=== PATIENT | male | born 1950 | race Native Hawaiian/Other Pacific Islander ===

== ENCOUNTER 2017-08-21 08:05 | Day surgery (SDC) | payer MEDICARE ==
[~2017-08-21 08:05] MED LIST: ANCEF/STERILE WATER 2 GM/20 ML 2 GM/20 ML SYRINGE IV NR
[2017-08-21] MEDS ORDERED: NACL BACTERIOSTATIC INFILTRATI ONE (09:31)
--- NOTE | 2017-08-21 10:02 | Anesthesia Consultation ---
Anesthesia Consult and Med Hx Date of service: 08/21/17 - Airway Anesthetic Teeth Evaluation: Bridges ROM Head & Neck: Adequate Mental/Hyoid Distance: Adequate Mallampati Class: Class II Intubation Access Assessment: Probably Good - Pulmonary Exam CTA: Yes - Cardiac Exam Cardiac Exam: RRR - Pre-Operative Health Status ASA Pre-Surgery Classification: ASA2 Proposed Anesthetic Plan: General - Pulmonary Hx Smoking: No Hx Sleep Apnea: No (LISET PRE SCREEN HIGH RISK) - Cardiovascular System Hx Hypertension: Yes - Hematic Hx Anemia: No - Other Systems Hx Cancer: No
[2017-08-21] MEDS ORDERED: VERSED IV NR (11:00)
[2017-08-21] MEDS ORDERED: PERCOCET 5/325 PO PRN (11:00)
[2017-08-21] MEDS ORDERED: ANCEF/STERILE WATER 2 GM/20 ML 2 GM/20 ML SYRINGE IV NR (11:00)
[2017-08-21] MEDS ORDERED: PEPCID PO NR (11:00)
[2017-08-21] MEDS ORDERED: ZOFRAN IV PRN (11:00)
[2017-08-21] MEDS ORDERED: NACL 0.9% 1000 ML 1,000 ML IV SCH (11:00)
[2017-08-21] MEDS ORDERED: SUBLIMAZE ONE (11:35)
[2017-08-21] MEDS ORDERED: DIPRIVAN 10 MG/ML IV ONE ×2 (11:35→12:16)
[2017-08-21] MEDS ORDERED: XYLOCAINE MPF 2% ONE (11:35)
[2017-08-21] MEDS ORDERED: ZOFRAN ONE (11:37)
[2017-08-21] MEDS ORDERED: DECADRON ONE (11:37)
[2017-08-21] MEDS ORDERED: OMNIPAQUE 300 MG/50 ML (CATH LAB) IV ONE (12:11)
[2017-08-21] MEDS ORDERED: LASIX ONE (12:43)
--- NOTE | 2017-08-21 12:58 | Anesthesia Day of Surgery ---
Anesthesia Day of Surgery - Day of Surgery Patient Examined: Yes Patient H&P Reviewed: Yes Patient is NPO: Yes
--- NOTE | 2017-08-21 12:58 | Post Operative Note ---
Date of procedure: 08/21/17 Pre-op diagnosis: heme Post-op diagnosis: same Findings: memb stricture erythema Procedure: cysto dviy rpgs biopsy Anesthesia: GETA Surgeon: LUKAS COVARRUBIAS Estimated blood loss: minimal Pathology: list (bladder) Specimen disposition: to lab Condition: stable Disposition: PACU
--- NOTE | 2017-08-21 12:58 | Post Anesthesia Evaluation ---
- Post Anesthesia Evaluation Patient Participated: Yes Airway Patent: Yes Stable Respiratory Function: Yes Temp > 96.8F: Yes Pain Manageable: Yes Adequeate Hydration: Yes Anesthesia Complications: No
--- NOTE | 2017-08-21 13:00 | Discharge Summary ---
Short Stay Discharge Plan Activity: other (no straining ) Weight Bearing Status: Full Weight Bearing Diet: regular, low salt Special Instructions: other (inc fluids ) Durable Medical Equipment Needed Upon Discharge: other (teach leonard care ) Follow up with: KIMBERLY LARSEN MD [Primary Care Provider] - 7 Days LUKAS COVARRUBIAS MD [Staff Physician] - 7 Days
[2017-08-21] MEDS: DILAUDID IV PRN ×2 (13:16→13:25)
--- NOTE | 2017-08-21 13:18 | Operative Report ---
PREOPERATIVE DIAGNOSIS: Erythema. POSTOPERATIVE DIAGNOSIS: Erythema with urethral stricture. PROCEDURES: Cystoscopy, direct vision internal urethrotomy, bladder biopsy, retrograde. SURGEON: Richard Kirk M.D. ANESTHESIA: General. FINDINGS: This is a gentleman with irritative and obstructive voiding symptoms. He now presents for cystoscopy. All the risks and complications were discussed. He had some erythema posterior wall of the bladder. We did use the flexible scope. DESCRIPTION OF PROCEDURE: The patient was brought to the operating room and placed on the operating table. Following induction of anesthesia, he was placed in the lithotomy position and prepped and draped in usual sterile fashion. Cystourethroscopy was attempted and we saw a stricture with the 22 scope, so we used the 20 that still was too tight. We had to do a direct vision internal urethrotomy with the wire in place. There was some mild prostatic bilobar hypertrophy. There was some erythema, posterior wall. Biopsy was obtained and the area was cauterized. Retrograde showed delicate collecting system with good filling and good drainage. The patient tolerated the procedure well. A #20 [place] was placed and brought to recovery room in stable condition. Family was notified. JOB# [id number] RADHA/YAZMIN
[2017-08-21 13:52] VITALS: BP 151/94
--- NOTE | 2017-08-21 15:01 | Fluoroscopy Report ---
RETROGRADE PYELOGRAM: History: Hematuria. There is adequate filling of the ureters and intrarenal collecting systems with no filling defects or anatomic abnormalities identified.
== END 2017-08-21 14:42 | disposition home or self-care (01) ==
LOC: OR 08:05
PROVIDERS: ATTEND Urology
DX: N40.1 Benign prostatic hyperplasia with lower urinary tract symptoms (principal); N13.8 Other obstructive and reflux uropathy; R35.0 Frequency of micturition; N35.9 Urethral stricture, unspecified; I10 Essential (primary) hypertension; M10.9 Gout, unspecified; M19.072 Primary osteoarthritis, left ankle and foot; M19.071 Primary osteoarthritis, right ankle and foot; M19.042 Primary osteoarthritis, left hand; M19.041 Primary osteoarthritis, right hand; Z98.890 Other specified postprocedural states; Z96.653 Presence of artificial knee joint, bilateral; Z98.811 Dental restoration status; Z87.828 Personal history of other (healed) physical injury and trauma; Z87.891 Personal history of nicotine dependence
CPT/HCPCS: 36415; 52204; 52276; 74420; 84132; 88305; C1758; J0690; J1100; J1170; J1940; J2250; J2405; J2704; J3010; J7030; Q9967

== ENCOUNTER 2021-06-23 12:07 | Emergency (ER) | payer MEDICARE ==
[~2021-06-23 12:07] MED LIST changes: +AMIODARONE 150 MG/3 ML INJ IV ONE; -ANCEF/STERILE WATER 2 GM/20 ML 2 GM/20 ML SYRINGE IV NR; +EPINEPHrine 1 MG/10 ML SYRINGE ONE; +LIDOCAINE PF 100 MG/5 ML (CARDIAC SYRINGE) IV ONE; +LIDOCAINE/D5W 2 GM/500 ML (0.4%) DRIP IV ONE; +SODIUM BICARB 8.4% 50 MEQ/50 ML SYRINGE IV ONE
--- NOTE | 2021-06-23 12:24 | Emergency Department Report ---
HPI - General Time Seen by Provider: 06/23/21 12:20 - HPI HPI: Room 18 The patient is a 71-year-old male present with a chief complaint of cardiac arrest. Per EMS patient's last known well time was approximately 15 minutes before normal 1 was called. Patient arrived on scene 11:43 to find the patient in V. fib. EMS states that the patient had been shocked twice by an AED on scene. EMS use a René airway to intubate the patient states that they defibrillated him 2 more times secondary to V. fib. Patient was administered epi x2 prior to arrival. In the ED the René airway was removed and the patient was intubated by myself using a glidescope. ACLS protocols were continued but there was no return of spontaneous circulation ED Past Medical Hx - Past Medical History Hx Hypertension: Yes Hx Arthritis: Yes (BOTH WRIST, BOTH FEET) Hx HIV: No - Surgical History Past Surgical History?: No - Family History Family history: no significant - Social History Smoking Status: Unknown if ever smoked Substance Use Type: None - Medications Home Medications: Home Medications Medication Instructions Recorded Confirmed Last Taken Type Acetaminophen/Codeine [Tylenol 1 tab PO Q6H PRN 08/11/17 08/11/17 Unknown History /Codeine # 3 tab] Bisoprolol/Hydrochlorothiazide 1 each PO QDAY 08/11/17 08/21/17 08/18/17 History [Bisoprolol-Hctz 10-6.25 mg Tab] Tamsulosin [Flomax] 0.4 mg PO QDAY 08/11/17 08/21/17 08/18/17 History ED Review of Systems ROS: Stated complaint: CARDIAC ARREST Other details as noted in HPI Comment: Unobtainable due to pts medical conditions Physical Exam - Physical Exam Physical Exam: GENERAL: The patient is well-developed well-nourished male lying on stretcher receiving chest compressions from EMS and being bagged via René airway. [] HEENT: Normocephalic. Atraumatic. NECK: Supple. Trachea midline CHEST/LUNGS: No spontaneous respirations. Breath sounds equal bilaterally with bagging after intubation by myself. Crepitus in the right upper chest HEART/CARDIOVASCULAR: No heart sounds ABDOMEN: Abdomen is soft SKIN: There is no rash. There is no edema. There is no diaphoresis. NEURO: GCS 3 T MUSCULOSKELETAL: There is no evidence of acute injury. - Intubation Time Out Performed: No Laryngoscope: fiberoptic video scope Size: 3 Assist Device Used: fiberoptic device ET Tube Size: 8 Tube Secured Depth (cm): 22 Tube Secured Location: lips Tube Placement Confirmation: visualized tube passing t, equal breath sounds bilat, confirmation by capnometr Patient Tolerated Procedure: no complications Intubation Complications: none ED Medical Decision Making - Differential Diagnosis Cardiac arrest Critical care attestation.: If time is entered above; I have spent that time in minutes in the direct care of this critically ill patient, excluding procedure time. ED Disposition Clinical Impression: Cardiac arrest Disposition: 20 Is pt being admited?: No Does the pt Need Aspirin: No Condition: Poor Time of Disposition: 12:20 (Patient )
== END 2021-06-23 13:00 ==
LOC: ED 12:07
DX: I46.9 Cardiac arrest, cause unspecified (principal); I10 Essential (primary) hypertension; M19.90 Unspecified osteoarthritis, unspecified site
CPT/HCPCS: 31500; 92950; 99285; J0171; J0282; J2001